=== PATIENT | male | born 1985 | race Caucasian/White ===

== ENCOUNTER 2017-06-18 20:25 | Observation (INO) | payer MEDICAID, OTHER ==
[2017-06-18 21:07] LABS: #Basophils 0.1 thou/uL (0.0-0.2); #Eosinphils 0.3 thou/uL (0.0-0.7); #Lymphocytes 2.3 thou/uL (1.20-3.40); #Monocytes 0.5 thou/uL (0.11-0.59); #Neutrophils 7.5 thou/uL (1.40-6.50); %Basophils 0.7 % (0.0-1.0); %Eosinophils 2.4 % (0.0-10.0); %Lymphocytes 21.6 % (21.0-51.0); %Neutrophils 70.4 % (42.0-75.0); Hemoglobin 14.1 g/dL (14.0-18.0); Mean Corpuscular HGB CONC 34.5 g/dL (32.0-36.0); Mean Corpuscular Hemoglobin 33.7 pg (27.0-31.0); Mean Corpuscular Volume 97.9 fl (80.0-94.0); Mean Platelet Volume 6.9 fL (7.4-10.4); Platelet Count 330 thou/uL (130-400); RBC Distribution Width 11.4 % (11.5-14.5); Red Blood Cell (RBC) Count 4.18 mill/uL (4.70-6.10); White Blood Cell (WBC) Count 10.7 thou/uL (4.8-10.8)
[2017-06-18 21:17] LABS: ALT (SGPT) 17 U/L (8-55); AST (SGOT) 14 U/L (5-34); Albumin 4.3 g/dL (3.5-5.0); Alkaline Phosphatase 78 U/L (40-150); Anion Gap 15 mmol/L (10-20); BUN (Urea Nitrogen) 12 mg/dL (8.9-20.6); Bilirubin, Total 0.4 mg/dL (0.2-1.2); CK (CPK) 108 U/L (30-200); Calc. Creatinine Clearance 0 mL/min (70-130); Calcium 9.7 mg/dL (7.8-10.44); Carbon Dioxide 22 mmol/L (22-29); Chloride 106 mmol/L (98-107); Estimated GFR-MDRD 84; Globulin 3.2 g/dL (2.4-3.5); Glucose 91 mg/dL (70-105); Potassium 4.3 mmol/L (3.5-5.1); Protein, Total 7.5 g/dL (6.0-8.3); Sodium 139 mmol/L (136-145)
[2017-06-18 21:21] LABS: Troponin I Less than 0.010 ng/mL (< 0.028)
--- NOTE | 2017-06-18 22:17 | RAD ---
FRONTAL VIEW CHEST SERIES: 06/18/17 COMPARISON: 11/09/16 INDICATION: Chest pain. FINDINGS: No lobar consolidation, effusion or pneumothorax. No free air beneath the hemidiaphragms. Cardiac shane houette is within normal limits in size. IMPRESSION: No focal consolidation. POS: [facility]
[2017-06-18] MEDS ORDERED: HYDROcodone/Acetaminophen 7.5/325 mg Tablet ONE (22:46)
[2017-06-18] MEDS ORDERED: HYDROcodone/Acetaminophen 5/325 mg Tablet PO PRN ×2 (23:51)
[2017-06-18] MEDS ORDERED: Acetaminophen 325 MG TAB PO PRN (23:51)
[2017-06-18] MEDS ORDERED: Ondansetron ODT 4 MG TAB SL PRN (23:51)
[2017-06-18] MEDS ORDERED: Ondansetron HCl/PF 4 MG/2 ML Vial IVP PRN (23:51)
[2017-06-19 00:14] LABS: Troponin I Less than 0.010 ng/mL (< 0.028)
[2017-06-19 00:43] VITALS: BMI 41.8
[2017-06-19 03:45] LABS: Troponin I Less than 0.010 ng/mL (< 0.028)
[2017-06-19 07:50] VITALS: TEMP 98.1
[2017-06-19] MEDS ORDERED: tiZANidine HCl 4 MG TAB PO PRN (09:53)
[2017-06-19] MEDS ORDERED: HYDROcodone/Acetaminophen 7.5/325 mg Tablet PO PRN (09:54)
--- NOTE | 2017-06-19 13:12 | CON ---
DATE OF CONSULTATION: 06/19/2017 CARDIOLOGY CONSULTATION PR[employer] WORKER: Ace Waite M.D. HISTORY OF PRESENT ILLNESS: Mr. Yan is a pleasant 31-year-old white gentleman who comes to the [facility] for chest pain. He has nonischemic cardiomyopathy. His EF was about 45%. A few years back, he had a heart catheterization that showed clean coronaries. He was started on blood pressure medic ations. This was most likely related to hypertension. He is followed up initially with Dr. Sutherland and then, most recently has been following up with Dr. Waite. He has been having a lot of trouble t rying to control his blood pressure. He has also been sent to see Dr. Moncada for sleep apnea and he is having this evaluated in the next 3 weeks. He came in as he was having a little pain, tightness yesterday, much better today. No chest pain, tightness, pressure. His troponins have been negative x3. PAST MEDICAL HISTORY: 1. Hypertension. 2. Nonischemic cardiomyopathy. 3. Chronic pain. PAST SURGICAL HISTORY: Heart catheterization as above and tonsillectomy. OUTPATIENT MEDICATIONS: 1. Coreg 3.125 mg b.i.d. 2. [place] p.r.n. 3. Lisinopril 10 mg a day. 4. Tizanidine 4 mg p.r.n. ALLERGIES: No known drug allergies. SOCIAL HISTORY: No alcohol, tobacco or drugs reported. FAMILY HISTORY: Positive for coronary artery disease. Father had an NH at 40. Grandmother had clarisa nary artery disease as well. REVIEW OF SYSTEMS: A 12 point review of systems was done and is all negative unless stated in the hi story of present illness. PHYSICAL EXAMINATION: VITAL SIGNS: Temperature 98.1, pulse 70, respiration rate 18, satting 99% on room air, blood pressur e 162/88. GENERAL: Awake, alert, oriented x3, in no distress. HEENT: Normocephalic, atraumatic. NECK: Supple. LUNGS: Clear. CARDIOVASCULAR: S1, S2, no S3, S4, no murmurs or rubs. ABDOMEN: Soft, otherwise. EXTREMITIES: No edema. SKIN: Warm and dry. LABORATORY WORK: Reviewed. Troponins were undetectable x3. CBC was unremarkable. ASSESSMENT AND PLAN: 1. Chest pain, not coronary syndrome as he has negative troponins. He should be able to be discharg ed home. Most likely, his pain is related to high blood pressure as he tells me that when it all sta rted yesterday, his blood pressure was about 200/110. I will provide him with p.r.n. hydralazine dos e. His blood pressure actually in the 120s on his current regimen at home, so I do not think he need s an up-titration of his current regimen. More likely he needs just a p.r.n. when his blood pressure goes that high. 2. Most recent echocardiogram was done about 2 years ago and he has normalized left ventricular func tion. Thank you for letting us to participate in the care of your patient. We will sign off. He is schedu led to have followup appointment in 3 weeks already. 3. Call with any questions.
[2017-06-19 13:17] VITALS: BP 121/75
--- NOTE | 2017-06-20 04:57 | HP ---
DATE OF ADMISSION: 06/18/2017 CHIEF COMPLAINT: Chest pain. HISTORY OF PRESENT ILLNESS: Mr. Yan is a 31-year-old male with past medical history of hypertension, chronic pain in the chest in the distal sternum area, pressure-like, not associated wi th any diaphoresis. No nausea, no shortness of breath. The pain started like stabbing, then it kapil me more like a heavy pressure, and at that time, he was working in the garden; however, the patient d ecided to come to the hospital because the pain was not going away. He had a cardiac catheterization done last year, which showed normal coronaries. In the ER, the patient was evaluated and found to h ave normal EKG and cardiac enzymes. He is admitted to rule out myocardial infarction. PAST MEDICAL HISTORY: 1. Hypertension. 2. Chronic back pain. 3. Hyperlipidemia. 4. Family history of premature coronary artery disease. PAST SURGICAL HISTORY: Status post tonsillectomy. CURRENT MEDICATIONS: The patient is on tizanidine 4 mg t.i.d., lisinopril 10 mg daily, [place] p.r.n. and also Protonix 40 mg daily. He recently was prescribed Coreg, but not yet started. ALLERGIES: NKA. FAMILY HISTORY: Positive for coronary artery disease. Father had a heart attack at age 40 and had a stroke. Grandmother has coronary artery disease. SOCIAL HISTORY: The patient lives with family. No history of smoking, no history of alcohol use. REVIEW OF SYSTEMS: Unremarkable except for chest pain. PHYSICAL EXAMINATION: GENERAL: The patient is alert, awake and oriented x3. VITAL SIGNS: Temperature 98, pulse 83, respirations 20, blood pressure 140/90. HEENT: Head is normocephalic, atraumatic. Pupils equal and reactive to light. Nasopharynx is pink and moist. NECK: Supple. No JVD. LUNGS: Bilateral air entry present. No rales. No rhonchi. CARDIAC: S1, S2 regular. ABDOMEN: Soft. No distention. Normal bowel sounds. RECTAL: Deferred. CENTRAL NERVOUS SYSTEM: No focal deficit. LABORATORY DATA: CBC shows WBC 10, hemoglobin 14, hematocrit 40, platelets 330,000. Metabolic panel , sodium 139, potassium 4.3, chloride 106, CO2 of 20, urea nitrogen 12, glucose 91. Chest x-ray nega tive. EKG shows normal sinus rhythm. No acute ST-T wave changes seen. ASSESSMENT: 1. Chest pain, rule out myocardial infarction. 2. Hypertension, uncontrolled. 3. Chronic back pain. 4. Hyperlipidemia. PLAN: 1. Vital signs q.4 hours. 2. Activity: As tolerated. 3. Allergies: NKDA. 4. Diet: Cardiac. 5. Continue the home medication. 6. Cardiology consult.
[2017-06-20] MEDS ORDERED: Carvedilol 3.125 MG TAB PO SCH (09:00)
[2017-06-20] MEDS ORDERED: Lisinopril 10 MG TAB PO SCH (09:00)
--- NOTE | 2017-06-22 11:48 | DIS ---
DATE OF ADMISSION: 06/18/2017 DATE OF DISCHARGE: 06/19/2017 ADMITTING DIAGNOSES: 1. Chest pain, rule out myocardial infarction. 2. Hypertension, uncontrolled. 3. Chronic back pain. 4. Hyperlipidemia. FINAL DIAGNOSES: 1. Chest pain. No evidence of acute myocardial infarction. 2. Hypertension, uncontrolled, improved. 3. Chronic back pain. 4. Hyperlipidemia. BRIEF SUMMARY OF HOSPITAL COURSE: Mr. Yan is a 31-year-old male admitted because of ch est pain. The patient has risk factors of hypertension, hyperlipidemia. The patient's blood pressur e was also elevated. The patient had a normal coronary angiogram last year. A Cardiology consult wa s done. The patient was seen by Dr. Polk. He felt the patient's chest pain is not coronary syndro me, probably it is related to uncontrolled hypertension, suggestive of adjusting the blood pressure m edication to control the blood pressure. The patient was discharged home. In view of improvement, t he patient has not had any chest pain. At the time of discharge, he was stable. Vital signs stable. Lungs clear. Heart sounds regular. Abdomen is soft, nontender. Bowel sounds present. DISCHARGE MEDICATIONS: Include lisinopril 10 mg daily, tizanidine 4 mg t.i.d., Protonix 40 mg daily, [place] p.r.n., Coreg 3.125 b.i.d., hydralazine p.r.n. 10 mg. FOLLOWUP: The patient will come for followup in 2 weeks.
== END 2017-06-19 15:16 | disposition home or self-care (01) ==
LOC: ERS 20:25 → 2SW 22:56
PROVIDERS: ADMIT Internal Medicine; ATTEND Internal Medicine
DX: R07.2 Precordial pain (principal); I10 Essential (primary) hypertension; M54.9 Dorsalgia, unspecified; G89.29 Other chronic pain; E78.5 Hyperlipidemia, unspecified; I42.8 Other cardiomyopathies; Z79.899 Other long term (current) drug therapy; Z90.89 Acquired absence of other organs; Z82.49 Family history of ischemic heart disease and other diseases of the circulatory system
CPT/HCPCS: 36415; 71045; 80053; 82550; 82553; 84484; 85025; 93005; 99406; G0378

== ENCOUNTER 2017-11-27 18:35 | Emergency (ER) | payer MEDICAID ==
--- NOTE | 2017-11-27 19:01 | RAD ---
CHEST TWO VIEWS: 11/27/17 HISTORY: Cough. COMPARISON: 09/09/16 exam. Heart size and mediastinum are within normal limits. The lungs appear clear of infiltrates. No signif icant bony findings. IMPRESSION: No active intrathoracic disease. POS: [facility]
== END 2017-11-27 20:00 | disposition home or self-care (01) ==
LOC: ERS 18:35
DX: J06.9 Acute upper respiratory infection, unspecified (principal); F17.220 Nicotine dependence, chewing tobacco, uncomplicated; I10 Essential (primary) hypertension; Z79.899 Other long term (current) drug therapy; Z71.6 Tobacco abuse counseling
CPT/HCPCS: 71046; 99406

== ENCOUNTER 2018-11-20 22:40 | Emergency (ER) | payer SELFPAY ==
[~2018-11-20 22:40] MED LIST: ISOVUE-370 76%-LOCM 1 ML ONE
[2018-11-20 23:18] LABS: #Basophils 0.1 thou/uL (0.0-0.2); #Eosinphils 0.2 thou/uL (0.0-0.7); #Lymphocytes 2.1 thou/uL (1.20-3.40); #Monocytes 0.9 thou/uL (0.11-0.59); %Basophils 0.6 % (0.0-1.0); %Eosinophils 1.4 % (0.0-10.0); %Lymphocytes 11.9 % (21.0-51.0); %Monocytes 5.4 % (0.0-10.0); %Neutrophils 80.6 % (42.0-75.0); Hemoglobin 14.3 g/dL (14.0-18.0); Mean Corpuscular HGB CONC 33.7 g/dL (32.0-36.0); Mean Platelet Volume 7.9 fL (7.4-10.4); Platelet Count 308 thou/uL (130-400); RBC Distribution Width 11.5 % (11.5-14.5); Red Blood Cell (RBC) Count 4.21 mill/uL (4.70-6.10); White Blood Cell (WBC) Count 17.4 thou/uL (4.8-10.8)
[2018-11-20 23:39] LABS: ALT (SGPT) 16 U/L (8-55); AST (SGOT) 19 U/L (5-34); Acetaminophen Less than 6.0 mcg/mL (10.0-30.0); Alcohol Less than 10 mg/dL (Less than 10); Alkaline Phosphatase 77 U/L (40-150); Anion Gap 12 mmol/L (10-20); BUN (Urea Nitrogen) 6 mg/dL (8.9-20.6); Bilirubin, Total 0.5 mg/dL (0.2-1.2); Calc. Creatinine Clearance 0 mL/min (70-130); Calcium 9.2 mg/dL (7.8-10.44); Carbon Dioxide 25 mmol/L (22-29); Chloride 106 mmol/L (98-107); Estimated GFR-MDRD Greater than 90; Globulin 2.3 g/dL (2.4-3.5); Glucose 99 mg/dL (70-105); Potassium 3.4 mmol/L (3.5-5.1); Protein, Total 6.3 g/dL (6.0-8.3); Salicylate Less than 8.0 mg/dL (15.0-30.0); Sodium 140 mmol/L (136-145)
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
== END 2018-11-21 00:42 | disposition home or self-care (01) ==
LOC: ERS 22:40
DX: S00.33XA Contusion of nose, initial encounter (principal); I10 Essential (primary) hypertension; F17.220 Nicotine dependence, chewing tobacco, uncomplicated; Y04.8XXA Assault by other bodily force, initial encounter
CPT/HCPCS: 36415; 70450; 70486; 71260; 72125; 74177; 80053; 80307; 83690; 85025; 96374; Q9966

== ENCOUNTER 2018-12-03 13:53 | Emergency (ER) | payer SELFPAY ==
[2018-12-03 14:16] LABS: #Basophils 0.1 thou/uL (0.0-0.2); #Eosinphils 0.4 thou/uL (0.0-0.7); #Lymphocytes 2.3 thou/uL (1.20-3.40); #Monocytes 0.6 thou/uL (0.11-0.59); #Neutrophils 6.4 thou/uL (1.40-6.50); %Basophils 0.8 % (0.0-1.0); %Eosinophils 4.1 % (0.0-10.0); %Lymphocytes 23.8 % (21.0-51.0); %Neutrophils 65.3 % (42.0-75.0); Hemoglobin 13.8 g/dL (14.0-18.0); Mean Corpuscular HGB CONC 33.3 g/dL (32.0-36.0); Mean Corpuscular Hemoglobin 33.7 pg (27.0-31.0); Platelet Count 260 thou/uL (130-400); RBC Distribution Width 11.9 % (11.5-14.5); Red Blood Cell (RBC) Count 4.09 mill/uL (4.70-6.10); White Blood Cell (WBC) Count 9.8 thou/uL (4.8-10.8)
--- NOTE | 2018-12-03 14:31 | RAD ---
CHEST 1 VIEW PORTABLE: Date: 12/03/18 HISTORY: Chest pain and dizziness for 2 days. COMPARISON: 08/20/18. FINDINGS: Heart size is normal. The lungs are clear. No pneumonia, edema, pleural effusion, or other acute proc ess. IMPRESSION: No acute intrathoracic disease. POS: [facility]
[2018-12-03 14:47] LABS: ALT (SGPT) 27 U/L (8-55); AST (SGOT) 21 U/L (5-34); Albumin 4.1 g/dL (3.5-5.0); Alkaline Phosphatase 71 U/L (40-110); Anion Gap 13 mmol/L (10-20); BUN (Urea Nitrogen) 13 mg/dL (8.9-20.6); Bilirubin, Total 0.2 mg/dL (0.2-1.2); Calc. Creatinine Clearance 0 mL/min (70-130); Calcium 9.5 mg/dL (7.8-10.44); Carbon Dioxide 27 mmol/L (22-29); Chloride 105 mmol/L (98-107); Estimated GFR-MDRD Greater than 90; Globulin 2.4 g/dL (2.4-3.5); Glucose 95 mg/dL (70-105); Lipase 27 U/L (8-78); Potassium 4.3 mmol/L (3.5-5.1); Protein, Total 6.5 g/dL (6.0-8.3); Sodium 141 mmol/L (136-145)
[2018-12-03] MEDS ORDERED: Ketorolac Tromethamine 60 MG/2 ML VIAL ONE (17:02)
== END 2018-12-03 18:05 | disposition home or self-care (01) ==
LOC: ERS 13:53
DX: F07.81 Postconcussional syndrome (principal); R07.89 Other chest pain; I10 Essential (primary) hypertension; F17.210 Nicotine dependence, cigarettes, uncomplicated
CPT/HCPCS: 36416; 71045; 80053; 83690; 84484; 85025; 93005; 96372; J1885

== ENCOUNTER 2018-12-21 16:49 | Emergency (ER) | payer SELFPAY ==
[2018-12-21 17:14] LABS: #Basophils 0.1 thou/uL (0.0-0.2); #Eosinphils 0.2 thou/uL (0.0-0.7); #Lymphocytes 1.5 thou/uL (1.20-3.40); #Monocytes 0.5 thou/uL (0.11-0.59); #Neutrophils 10.9 thou/uL (1.40-6.50); %Basophils 0.6 % (0.0-1.0); %Eosinophils 1.5 % (0.0-10.0); %Lymphocytes 11.5 % (21.0-51.0); %Neutrophils 82.4 % (42.0-75.0); Hemoglobin 13.2 g/dL (14.0-18.0); Mean Corpuscular HGB CONC 34.8 g/dL (32.0-36.0); Mean Corpuscular Volume 97.7 fL (78.0-98.0); Mean Platelet Volume 7.3 fL (7.4-10.4); Platelet Count 296 thou/uL (130-400); RBC Distribution Width 11.5 % (11.5-14.5); Red Blood Cell (RBC) Count 3.89 mill/uL (4.70-6.10); White Blood Cell (WBC) Count 13.2 thou/uL (4.8-10.8)
--- NOTE | 2018-12-21 17:17 | RAD ---
Exam: Chest one view HISTORY:Chest pain Comparison: 12/03/2018 FINDINGS: Lungs: No masses or consolidation. Cardiac silhouette: Normal size Pulmonary vessels: Normal Pleural Spaces: Clear Pneumothorax: None Osseous abnormalities: None of acuity. IMPRESSION: Stable chest. No focal consolidation.
[2018-12-21 17:26] LABS: Acetaminophen Less than 6.0 mcg/mL (10.0-30.0); Alcohol Less than 10 mg/dL (Less than 10); Salicylate Less than 8.0 mg/dL (15.0-30.0)
[2018-12-21 17:36] LABS: ALT (SGPT) 9 U/L (8-55); AST (SGOT) 10 U/L (5-34); Albumin 4.2 g/dL (3.5-5.0); Alkaline Phosphatase 75 U/L (40-110); Anion Gap 15 mmol/L (10-20); BUN (Urea Nitrogen) 7 mg/dL (8.9-20.6); Bilirubin, Total 0.6 mg/dL (0.2-1.2); CK (CPK) 168 U/L (30-200); Calc. Creatinine Clearance 0 mL/min (70-130); Calcium 9.2 mg/dL (7.8-10.44); Carbon Dioxide 22 mmol/L (22-29); Chloride 107 mmol/L (98-107); Estimated GFR-MDRD Greater than 90; Globulin 2.3 g/dL (2.4-3.5); Glucose 82 mg/dL (70-105); Potassium 3.3 mmol/L (3.5-5.1); Protein, Total 6.5 g/dL (6.0-8.3); Sodium 141 mmol/L (136-145)
[2018-12-21 18:48] LABS: Amphetamine Detected (NotDetected); Barbiturates Screen Not Detected (NotDetected); Benzodiazepine Screen Not Detected (NotDetected); Cocaine Metabolite Screen Not Detected (NotDetected); Medtox Control Line Valid? VALID (VALID); Medtox Reader # READER 4; Methadone Not Detected (NotDetected); Methamphetamine Detected (NotDetected); Opiate Screen Not Detected (NotDetected); Oxycodone Screen Not Detected (NotDetected); Phencyclidine (PCP) Not Detected (NotDetected); THC/Cannabinoid Screen Not Detected (NotDetected); Tricyclic Screen Not Detected (NotDetected)
--- NOTE | 2018-12-25 15:48 | EKG ---
Test Reason : CP Blood Pressure : / mmHG Vent. Rate : 079 BPM Atrial Rate : 089 BPM P-R Int : 000 ms QRS Dur : 108 ms QT Int : 386 ms P-R-T Axes : 050 053 075 degrees QTc Int : 442 ms Undetermined rhythm Otherwise normal ECG Confirmed by MASSIMO GOMEZ ([id number]), scientific editor CROW PANTOJA ([id number] on 12/25/2018 3:47:29 PM Referred By: Confirmed By:MASSIMO GOMEZ
== END 2018-12-21 19:54 | disposition home or self-care (01) ==
LOC: ERS 16:49
DX: R07.89 Other chest pain (principal); F15.10 Other stimulant abuse, uncomplicated; I10 Essential (primary) hypertension; F17.210 Nicotine dependence, cigarettes, uncomplicated; Z79.899 Other long term (current) drug therapy
CPT/HCPCS: 36415; 71045; 80053; 80306; 80307; 82550; 83880; 84484; 85025; 93005

== ENCOUNTER 2019-02-01 13:20 | Emergency (ER) | payer SELFPAY ==
[2019-02-01 13:56] LABS: #Basophils 0.1 thou/uL (0.0-0.2); #Eosinphils 0.1 thou/uL (0.0-0.7); #Lymphocytes 1.7 thou/uL (1.20-3.40); #Monocytes 0.5 thou/uL (0.11-0.59); #Neutrophils 12.4 thou/uL (1.40-6.50); %Basophils 0.5 % (0.0-1.0); %Lymphocytes 11.6 % (21.0-51.0); %Monocytes 3.3 % (0.0-10.0); %Neutrophils 83.6 % (42.0-75.0); Hemoglobin 14.7 g/dL (14.0-18.0); Mean Corpuscular HGB CONC 33.7 g/dL (32.0-36.0); Mean Corpuscular Hemoglobin 34.2 pg (27.0-31.0); Mean Platelet Volume 7.4 fL (7.4-10.4); Platelet Count 305 thou/uL (130-400); RBC Distribution Width 12.4 % (11.5-14.5); Red Blood Cell (RBC) Count 4.29 mill/uL (4.70-6.10); White Blood Cell (WBC) Count 14.9 thou/uL (4.8-10.8)
[2019-02-01 14:20] LABS: ALT (SGPT) 9 U/L (8-55); AST (SGOT) 11 U/L (5-34); Albumin 4.3 g/dL (3.5-5.0); Alkaline Phosphatase 67 U/L (40-110); Anion Gap 9 mmol/L (10-20); BUN (Urea Nitrogen) 8 mg/dL (8.9-20.6); Bilirubin, Total 0.4 mg/dL (0.2-1.2); Calc. Creatinine Clearance 0 mL/min (70-130); Calcium 9.5 mg/dL (7.8-10.44); Carbon Dioxide 29 mmol/L (22-29); Chloride 103 mmol/L (98-107); Estimated GFR-MDRD Greater than 90; Globulin 2.7 g/dL (2.4-3.5); Glucose 103 mg/dL (70-105); Lipase 18 U/L (8-78); Sodium 137 mmol/L (136-145)
== END 2019-02-01 17:01 | disposition left against medical advice (07) ==
LOC: ERS 13:20
DX: Z53.21 Procedure and treatment not carried out due to patient leaving prior to being seen by health care provider (principal)
CPT/HCPCS: 36415; 80053; 83690; 85025